=== PATIENT | female | born 1955 | race Caucasian/White ===

== ENCOUNTER 2016-08-15 06:15 | Day surgery (SDC) | payer OTHER ==
[~2016-08-15] VITALS: Ht 157.5 cm; Wt 62.2 kg
[~2016-08-15 06:15] MED LIST: LEVOTHYROXINE PO; OMEPRAZOLE PO
[2016-08-15 07:12] VITALS: BP 122/71; PULSE 59; RESP 18
[2016-08-15 07:15] VITALS: Ht 157.5 cm; Wt 62.2 kg
[2016-08-15] MEDS ORDERED: cholesterol (07:15)
[2016-08-15] MEDS ORDERED: MIDAZOLAM 1 MG/ML 2 ML INJ ONE ×3 (08:33→08:34)
[2016-08-15] MEDS ORDERED: FENTAnyl 50 MCG/ML VIAL ONE (08:34)
[2016-08-15 08:41] VITALS: BP 133/72; RESP 18
--- NOTE | 2016-08-15 08:49 | GILP ---
DATE OF PROCEDURE: 08/15/2016 NAME OF PROCEDURES: 1. Esophagogastroduodenoscopy and biopsy. 2. Colonoscopy. SURGEON: Jaspal Cruz MD PREOPERATIVE DIAGNOSES: 1. Abdominal pain. 2. Chronic heartburn. 3. Screening colonoscopy. POSTOPERATIVE DIAGNOSES: 1. Hiatal hernia. 2. Gastroesophageal reflux disease. 3. Gastritis. 4. Gastric mucosal biopsies were taken for Helicobacter pylori test. 5. Colonoscopy all the way to the cecum. 6. Internal and external hemorrhoids. 7. No colon neoplasm was identified. INDICATION FOR THE PROCEDURE: Ms. Indira Hayes is a 60-year-old female patient who had upper abdomi nal pain and chronic heartburn, not responding to therapy. The patient also needed screening colono scopy. The procedures and possible complications were well explained to the patient. The patient understoo d and consented to the procedure. DESCRIPTION OF PROCEDURE: Under the influence of fentanyl and Versed, the gastroscope was carefully introduced into the esophagus, and under direct vision, it was advanced to the stomach and through the pylorus into the duodenal bulb and descending duodenum. FINDINGS: ESOPHAGUS: The patient had hiatal hernia and gastroesophageal reflux disease. STOMACH: She had gastritis with erosions. Gastric mucosal biopsies were taken for H. pylori test. DUODENUM: Normal. The colonoscope was carefully introduced in the rectum, and under direct vision, it was advanced all the way to the cecum. FINDINGS: The patient had internal and external hemorrhoids. No colon neoplasm was identified. She tolerated the procedures very well, and there was no complication from the procedures. At the e nd of the procedures, she was awake with stable vital signs, and she was discharged home to the care of her family. IMPRESSION: 1. Hiatal hernia. 2. Gastroesophageal reflux disease. 3. Gastritis with erosions. 4. Gastric mucosal biopsies were taken for Helicobacter pylori test. 5. Colonoscopy all the way to the cecum. 6. Internal and external hemorrhoids. 7. No colon neoplasm was identified. PLAN: 1. Omeprazole 40 mg p.o. q. a.m. 2. Zantac 300 mg p.o. at bedtime. 3. Await H. pylori test report. 4. Anusol-HC 2.5% cream b.i.d. p.r.n. 5. Next screening colonoscopy in 10 years. Dictated By: JASPAL SAMPSON/YING Conf#: [id number] [facility]#: [id number]
== END 2016-08-15 10:58 | disposition home or self-care (01) ==
LOC: GIL 06:15
PROVIDERS: ATTEND Internal Medicine Gastroenterology
DX: Z12.11 Encounter for screening for malignant neoplasm of colon (principal); K44.9 Diaphragmatic hernia without obstruction or gangrene; K21.9 Gastro-esophageal reflux disease without esophagitis; K64.8 Other hemorrhoids; K64.4 Residual hemorrhoidal skin tags
CPT/HCPCS: 43239; 45378; 87081; J2250; J3010; Z7610